=== PATIENT | female | born 1975 | race Caucasian/White ===

== ENCOUNTER 2016-11-04 02:37 | Emergency (ER) | payer SELFPAY ==
[2016-11-04] MEDS ORDERED: LORazepam 2 MG/ML VIAL IV PUSH ONE (03:00)
[2016-11-04 03:03] VITALS: BP 152/89; PULSE 111; RESP 20; TEMP 98.3; O2SAT 96
[2016-11-04 04:11] LABS: AUTOMATED NEUTROPHIL # 11.4 TH/MM3 (1.8-7.7); BASOPHIL % 0.2 % (0.0-2.0); EOSINOPHIL % 0.3 % (0.0-4.0); HEMATOCRIT 37.5 % (35.0-46.0); HEMO FLAGS DIFF FINAL; LYMPH % 12.1 % (9.0-44.0); LYMPHOCYTE # 1.7 TH/MM3 (1.0-4.8); MEAN CELL VOLUME 93.7 FL (80.0-100.0); MEAN CORPUSCULAR HEMOGLOBIN 31.9 PG (27.0-34.0); MEAN CORPUSCULAR HGB CONC 34.1 % (32.0-36.0); MONO % 7.5 % (0.0-8.0); NEUT % 79.9 % (16.0-70.0); PLATELET COUNT 346 TH/MM3 (150-450); RED BLOOD COUNT 4.01 MIL/MM3 (4.00-5.30); RED CELL DISTRIBUTION WIDTH 13.3 % (11.6-17.2); WHITE BLOOD COUNT 14.2 TH/MM3 (4.0-11.0)
[2016-11-04 04:39] LABS: ALKALINE PHOSPHATASE 58 U/L (45-117); TOTAL BILIRUBIN ADULT 0.9 MG/DL (0.2-1.0)
[2016-11-04 04:40] LABS: ALT (GPT) 27 U/L (10-53); ANION GAP 13 MEQ/L (5-15); AST (GOT) 38 U/L (15-37); BICARBONATE 17.8 MEQ/L (21.0-32.0); BLOOD UREA NITROGEN 14 MG/DL (7-18); CHLORIDE 110 MEQ/L (98-107); GLOMERULAR FILTRATION RATE 61 ML/MIN (>89); POTASSIUM 3.9 MEQ/L (3.5-5.1); SODIUM (NA) 141 MEQ/L (136-145)
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
[2016-11-04 06:25] VITALS: BP 100/55; PULSE 74; RESP 16; O2SAT 100
--- NOTE | 2016-11-04 06:54 | RADRPT ---
EXAM DATE/TIME: 11/04/2016 06:38 [facility] COMPARISON: No previous studies available for comparison. INDICATIONS : Altered mental status. ETOH RADIATION DOSE: 39.27 CTDIvol (mGy) MEDICAL HISTORY : None SURGICAL HISTORY : None. ENCOUNTER: Initial ACUITY: 1 day PAIN SCALE: Non-responsive LOCATION: cranial TECHNIQUE: Multiple contiguous axial images were obtained of the head. Using automated exposure control and adj ustment of the mA and/or kV according to patient size, radiation dose was kept as low as reasonably a chievable to obtain optimal diagnostic quality images. FINDINGS: Noncontrast axial head CT demonstrates the ventricles to be normal in size and configuration with a n ormal sulcal pattern. No acute intracranial hemorrhage, acute cortical infarction, mass or midline sh ift is seen. Posterior fossa structures are unremarkable. Bone windows are unremarkable. There is benign-appearing mucosal disease in the left maxillary sinus. CONCLUSION: 1. No evidence of acute intracranial pathology. No masses are identified. Jorge Rodriguez MD on November 04, 2016 at 6:51 Board Certified Radiologist. This report was verified electronically.
[2016-11-04] MEDS ORDERED: SODIUM CHLOR 0.9% 1000 ML INJ 1,000 ML IV SCH (12:23)
[2016-11-04 12:26] VITALS: BP 145/87; PULSE 88; RESP 18; TEMP 98.7; O2SAT 99
[2016-11-04] MEDS ORDERED: PANTOPRAZOLE SODIUM 40 MG VIAL IVP ONE (12:30)
[2016-11-04] MEDS ORDERED: ONDANSETRON HCL 4 MG/2 ML VIAL IV PUSH ONE (12:30)
--- NOTE | 2016-11-04 12:34 | PD ---
Physical Exam Time Seen by Provider: 12:10 Data Data Last Documented VS Vital Signs Date Time Temp Pulse Resp B/P Pulse Ox O2 Delivery O2 Flow Rate FiO2 11/04/16 14:41 91 18 123/66 100 Room Air 11/04/16 12:26 98.7 11/04/16 06:25 2 Orders Lorazepam Inj (Ativan Inj) (11/04/16 03:00) Complete Blood Count With Diff (11/04/16 03:47) Comprehensive Metabolic Panel (11/04/16 03:47) Psych Screen (11/04/16 03:47) Drug Screen, Random Urine (11/04/16 03:47) Alcohol (Ethanol) (11/04/16 03:47) Ct Brain W/O Iv Contrast(Rout) (11/04/16 ) Diet Regular Basic (11/04/16 Lunch) Pantoprazole Inj (Protonix Inj) (11/04/16 12:30) Sodium Chlor 0.9% 1000 Ml Inj (Ns 1000 M (11/04/16 12:23) Ondansetron Inj (Zofran Inj) (11/04/16 12:30) Ed Urine Pregnancytest Poc (11/04/16 12:24) Pantoprazole (Protonix) (11/04/16 13:45) Ondansetron Odt (Zofran Odt) (11/04/16 13:45) Diet Regular Basic (11/04/16 Dinner) Labs Laboratory Tests Test 11/04/16 11/04/16 03:55 12:20 White Blood Count 14.2 TH/MM3 Red Blood Count 4.01 MIL/MM3 Hemoglobin 12.8 GM/DL Hematocrit 37.5 % Mean Corpuscular Volume 93.7 FL Mean Corpuscular Hemoglobin 31.9 PG Mean Corpuscular Hemoglobin 34.1 % Concent Red Cell Distribution Width 13.3 % Platelet Count 346 TH/MM3 Mean Platelet Volume 8.4 FL Neutrophils (%) (Auto) 79.9 % Lymphocytes (%) (Auto) 12.1 % Monocytes (%) (Auto) 7.5 % Eosinophils (%) (Auto) 0.3 % Basophils (%) (Auto) 0.2 % Neutrophils # (Auto) 11.4 TH/MM3 Lymphocytes # (Auto) 1.7 TH/MM3 Monocytes # (Auto) 1.1 TH/MM3 Eosinophils # (Auto) 0.0 TH/MM3 Basophils # (Auto) 0.0 TH/MM3 CBC Comment DIFF FINAL Differential Comment Sodium Level 141 MEQ/L Potassium Level 3.9 MEQ/L Chloride Level 110 MEQ/L Carbon Dioxide Level 17.8 MEQ/L Anion Gap 13 MEQ/L Blood Urea Nitrogen 14 MG/DL Creatinine 1.01 MG/DL Estimat Glomerular Filtration 61 ML/MIN Rate Random Glucose 86 MG/DL Calcium Level 9.1 MG/DL Total Bilirubin 0.9 MG/DL Aspartate Amino Transf 38 U/L (AST/SGOT) Alanine Aminotransferase 27 U/L (ALT/SGPT) Alkaline Phosphatase 58 U/L Total Protein 7.6 GM/DL Albumin 4.1 GM/DL Ethyl Alcohol Level 189 MG/DL Urine Opiates Screen NEG Urine Barbiturates Screen NEG Urine Amphetamines Screen NEG Urine Benzodiazepines Screen NEG Urine Cocaine Screen POS Urine Cannabinoids Screen NEG MDM Medical Record Reviewed: Yes Supervised Visit with BRIGIDA: No Narrative Course 1215: I been asked to evaluate this patient who is previously medically cleared by Dr. Moody after being placed on a Hernandes act. The patient apparently came in early this morning intoxicated with limited history. She was medically cleared. She is now back into a pot and she had one episode of hematemesis in the sink. She feels somewhat nauseous and dizzy. She is denying any abdominal pain. She endorses alcohol use last night in an argument with her significant other. Denies any illicit drug use. In addition the patient is requesting staple removal from her left parietal scalp. She sustained a closed head injury about 10 days ago and was supposed to have the laureano removed. The 3 laureano were removed without incident from a well-healing laceration on the left parietal scalp. Her current vital signs are stable with a pulse of 88, blood pressure 145/87. She has no significant past medical history. Likely this patient's senior episode of hematemesis after drinking a significant amount of alcohol last night is related to a Anita-Solitario tear. Plan is to provide the patient fluids, Protonix and Zofran and she will be closely monitored. Discussed with Dr. Aldana who agrees with plan of care. Initially the patient is going be given IV Protonix and Zofran however because she is in J pot and unable to have an IV medications or being switched to oral Protonix and Zofran. The patient has been monitored for over an hour at this time with no additional emesis and she has tolerated oral hydration in the form of Gatorade since then. 1615: The patient was reevaluated she has had no further nausea or emesis, no new symptoms. She has tolerated oral fluid. She is medically cleared. Diagnosis Primary Impression: Polysubstance abuse Kenrick Dickson Nov 04, 2016 12:34
[2016-11-04 13:14] LABS: AMPHETAMINE, URINE NEG (NEG); BARBITURATES, URINE NEG (NEG); COCAINE, URINE POS (NEG)
[2016-11-04] MEDS ORDERED: ONDANSETRON ODT 4 MG TAB PO ONE (13:45)
[2016-11-04] MEDS ORDERED: PANTOPRAZOLE SOD 40 MG DELAYED RELEASE TAB PO ONE (13:45)
[2016-11-04 14:41] VITALS: BP 123/66; PULSE 91; RESP 18; O2SAT 100
[2016-11-04 17:01] VITALS: BP 123/66; PULSE 91; RESP 18; O2SAT 100
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
== END 2016-11-04 18:42 | disposition home or self-care (01) ==
LOC: NEPC 02:37 → NEPJ 18:42
DX: F19.10 Other psychoactive substance abuse, uncomplicated (principal); K92.0 Hematemesis; R42 Dizziness and giddiness; S01.01XD Laceration without foreign body of scalp, subsequent encounter; F17.200 Nicotine dependence, unspecified, uncomplicated; Z48.02 Encounter for removal of sutures; X58.XXXD Exposure to other specified factors, subsequent encounter
CPT/HCPCS: 70450; 80053; 80307; 80320; 84703; 85025; 96374; 99284; J2060